=== PATIENT | female | born 1980 | race Caucasian/White ===

== ENCOUNTER 2023-03-16 09:36 | Emergency (ER) | payer OTHER ==
[~2023-03-16] VITALS: Ht 167.6 cm; Wt 70.0 kg
[2023-03-16 09:41] VITALS: TEMP 98.1; O2SAT 98
[2023-03-16] MEDS ORDERED: METO25TA6 PO (09:44)
[2023-03-16] MEDS ORDERED: TICA60TA PO (09:44)
[2023-03-16] MEDS ORDERED: ATOR10TA69 PO (09:44)
[2023-03-16 10:15] VITALS: BP 113/64; PULSE 85; RESP 18
[2023-03-16] MEDS ORDERED: KETOROLAC 30MG/ML VIAL IV ONE (10:15)
[2023-03-16] MEDS ORDERED: TOPUD MT (12:06)
== END 2023-03-16 12:48 | disposition home or self-care (01) ==
LOC: ER 09:36
DX: S50.01XA Contusion of right elbow, initial encounter (principal); S13.4XXA Sprain of ligaments of cervical spine, initial encounter; S09.90XA Unspecified injury of head, initial encounter; E11.9 Type 2 diabetes mellitus without complications; E78.00 Pure hypercholesterolemia, unspecified; I10 Essential (primary) hypertension; W18.39XA Other fall on same level, initial encounter; Y93.89 Activity, other specified; Y92.89 Other specified places as the place of occurrence of the external cause; Y99.8 Other external cause status
CPT/HCPCS: 81025; 73080; 73110; 70450; 72125; 96374; 99285; J1885; Z7610